=== PATIENT | female | born 1995 ===

== ENCOUNTER 2018-04-05 19:55 | Emergency (ER) | payer SELFPAY ==
[2018-04-05 19:58] VITALS: RESP 18; TEMP 98.6; O2SAT 98; BMI 40.4
--- NOTE | 2018-04-05 20:35 | ED PDOC ---
Arrival/HPI - General Chief Complaint: ENT Problem Time Seen by Provider: 04/05/18 19:58 - History of Present Illness Narrative History of Present Illness (Text): 22 y/o F c PMHx asthma p/w R ear pain x 5 days. Recently returned from [place] and spent a lot of time in the water. Denies fever, neck stiffness, ear discharge. Past Medical History - Travel History If Yes, travel location?: [place] - Infectious Disease Hx of Infectious Diseases: None - Psychiatric Hx Psychophysiologic Disorder: No Hx Anxiety: No Hx Bipolar Disorder: No Hx Depression: No Hx Emotional Abuse: No Hx Hallucinations: No Hx Panic Disorder: No Hx Post Traumatic Stress Disorder: No Hx Psychosis: No Hx Physical Abuse: No Hx Schizophrenia: No Hx Sexual Abuse: No Hx Substance Use: No - Surgical History Other/Comment: performed september 27, 2015. - Anesthesia Hx Anesthesia: No Hx Anesthesia Reactions: No Hx Malignant Hyperthermia: No Family/Social History Family/Social History: No Known Family HX Smoking Status: Never Smoked Hx Alcohol Use: No Hx Substance Use: No Allergies/Home Meds Allergies/Adverse Reactions: Allergies Penicillins Allergy (Verified 11/01/15 11:43) ANAPHYLAXIS Review of Systems - Review of Systems Constitutional: absent: Fevers Respiratory: absent: SOB Gastrointestinal: absent: Vomiting Physical Exam - Physical Exam Narrative Physical Exam (Text): Gen: NAD Head: NC/AT ENT: R ear pain with manipulation, canal swollen but not closed. No mastoid tenderness. Neck: Supple. No rigidity Resp: No respiratory distress Extremities: No edema Neuro: Alert, no focal deficit Skin: No rash Vital Signs Temp Pulse Resp BP Pulse Ox 04/05/18 19:56 98.6 F 118 H 18 105/72 98 Medical Decision Making ED Course and Treatment: Antibiotics prescribed, instructed to f/u with Dr. Sutton. Return to ED for worsening pain, fever, stiff neck, or any other problem. Disposition/Present on Arrival - Present on Arrival Any Indicators Present on Arrival: No History of DVT/PE: No History of Uncontrolled Diabetes: No Urinary Catheter: No History of Decub. Ulcer: No History Surgical Site Infection Following: None - Disposition Have Diagnosis and Disposition been Completed?: Yes Diagnosis: Otitis externa Disposition: HOME/ ROUTINE Disposition Time: 20:33 Patient Plan: Discharge Patient Problems: Current Active Problems Problem Status Onset Otitis externa Acute Condition: STABLE Discharge Instructions (ExitCare): Outer Ear Infection (DC) Prescriptions: Azithromycin [Zithromax] 2 tab PO DAILY #6 tab Ofloxacin Otic 0.3% [Floxin 0.3% Otic Soln] 5 drop AD BID #1 bottle Referrals: Sam Sutton DO [Staff Provider] - Follow up with primary Forms: [email or web address] ([place])
[2018-04-05 20:59] VITALS: BP 110/75; PULSE 90
== END 2018-04-05 20:53 | disposition home or self-care (01) ==
LOC: ED 19:55
DX: H60.90 Unspecified otitis externa, unspecified ear (principal)

== ENCOUNTER 2018-12-07 17:01 | Emergency (ER) | payer OTHER ==
[2018-12-07 17:01] VITALS: BMI 40.4
[2018-12-07] MEDS ORDERED: Sodium Chloride 0.9% 1,000 ML IV STA (17:44)
[2018-12-07 17:54] VITALS: RESP 16
--- NOTE | 2018-12-07 18:05 | ED PDOC ---
Arrival/HPI - General Chief Complaint: Dizziness/Lightheaded Time Seen by Provider: 12/07/18 17:19 Historian: Patient - History of Present Illness Narrative History of Present Illness (Text): 12/07/18 17:54 23 year old F presents to the emergency department complaining of discomfort in R. ear w/o pain ("feels clogged") since yesterday and dizziness since today. Patient mentions that she feels the room is spinning when standing. Patient endorses eating and drinking patterns have not changed. Patient denies syncope and other neurological symptoms such as upper/lower extremity weakness and facial weakness. Patient denies any fevers, chills, headache, chest pain, shortness of breath, dyspnea on exertion, cough, abdominal pain, nausea, vomiting, diarrhea, back pain, neck pain, or any other complaint. Time/Duration: 4-6 hours Symptom Onset: Sudden Symptom Course: Unchanged Activities at Onset: Light Context: Home Past Medical History - Provider Review Nursing Documentation Reviewed: Yes - Infectious Disease Hx of Infectious Diseases: None - Reproductive Menopause: No - Psychiatric Hx Psychophysiologic Disorder: No Hx Anxiety: No Hx Bipolar Disorder: No Hx Depression: No Hx Emotional Abuse: No Hx Hallucinations: No Hx Panic Disorder: No Hx Post Traumatic Stress Disorder: No Hx Psychosis: No Hx Physical Abuse: No Hx Schizophrenia: No Hx Sexual Abuse: No Hx Substance Use: No - Surgical History Hx Gastric Bypass Surgery: Yes Other/Comment: performed september 27, 2015. - Anesthesia Hx Anesthesia: No Hx Anesthesia Reactions: No Hx Malignant Hyperthermia: No Family/Social History - Physician Review Nursing Documentation Reviewed: Yes Family/Social History: No Known Family HX Smoking Status: Never Smoked Hx Alcohol Use: No Hx Substance Use: No Allergies/Home Meds Allergies/Adverse Reactions: Allergies Penicillins Allergy (Verified 11/01/15 11:43) ANAPHYLAXIS Review of Systems - Physician Review All systems were reviewed & negative as marked: Yes - Review of Systems Constitutional: absent: Fevers ENT: absent: Hearing Changes, Tinnitus, TMJ Pain Respiratory: absent: SOB, Cough, Wheezing Cardiovascular: absent: Syncope Gastrointestinal: absent: Abdominal Pain, Diarrhea, Nausea, Vomiting Musculoskeletal: absent: Arthralgias Neurological: Dizziness. absent: Headache Physical Exam Vital Signs Reviewed: Yes Vital Signs Temp Pulse Resp BP Pulse Ox 12/07/18 17:29 98.8 F 88 16 116/75 99 Temperature: Afebrile Blood Pressure: Normal Pulse: Regular Respiratory Rate: Normal Appearance: Positive for: Well-Appearing Mental Status: Positive for: Alert and Oriented X 3 - Systems Exam Head: Present: Atraumatic, Normocephalic Pupils: Present: PERRL Extroacular Muscles: Present: EOMI Conjunctiva: Present: Normal Ears: Present: NORMAL TM (B/L TM are clear). No: TM Bulging, TM Perf Neck: Present: Normal Range of Motion Respiratory/Chest: Present: Clear to Auscultation, Good Air Exchange. No: Respiratory Distress, Accessory Muscle Use Cardiovascular: Present: Regular Rate and Rhythm, Normal S1, S2 Upper Extremity: Present: Normal Inspection (5/5 upper extremities) Lower Extremity: Present: Normal Inspection (5/5 lower extremities) Neurological: Present: GCS=15, Speech Normal, Normal Cerebellar Funct (finger to nose intact bilaterally), Other (no nystagmus) Skin: Present: Warm Psychiatric: Present: Alert, Oriented x 3, Normal Insight, Normal Concentration Medical Decision Making ED Course and Treatment: 12/07/18 18:14 Impression: 23 year old F presents to the emergency department complaining of discomfort in R. ear w/o pain ("feels clogged") since yesterday and dizziness since today. Plan: --Labs --EKG --Antivert --Saline IV -- Reassess and disposition Prior Visits: Notes and results from previous visits were reviewed. Progress Notes: Labs and EKG done. Patient given meclizine PO for vertigo, and 1L NS bolus. 12/07/18 18:28 EKG shows NSR at 65 BPM with normal QRS, normal axis, normal intervals, no acute ST/T wave abnormalities. Interpreted by me. Orthostatics done: lying BP 113/70 HR 70, sitting BP 139/75 HR 84, standing BP 114/70 HR 96 Results discussed with patient. She states that she feels improved with meclizine and fluids. Rx written for meclizine. Also advised maintaining adequate hydration. Patient stable for discharge, able to ambulate without difficulty. - Medication Orders Current Medication Orders: Sodium Chloride (Sodium Chloride 0.9%) 1,000 mls @ 999 mls/hr IV .Q1H1M STA Stop: 12/07/18 18:44 Discontinued Medications Meclizine HCl (Antivert) 25 mg PO STAT STA Stop: 12/07/18 17:45 - PA / DEVELOPMENT PROFESSIONAL / Resident Statement MD/DO has reviewed & agrees with the documentation as recorded. - Scribe Statement The provider has reviewed the documentation as recorded by the Pola Sinhg All medical record entries made by the Pola were at my direction and personally dictated by me. I have reviewed the chart and agree that the record accurately reflects my personal performance of the history, physical exam, medical decision making, and the department course for this patient. I have also personally directed, reviewed, and agree with the discharge instructions and disposition. Disposition/Present on Arrival - Present on Arrival Any Indicators Present on Arrival: No History of DVT/PE: No History of Uncontrolled Diabetes: No Urinary Catheter: No History of Decub. Ulcer: No History Surgical Site Infection Following: None - Disposition Have Diagnosis and Disposition been Completed?: Yes Diagnosis: Vertigo Disposition: HOME/ ROUTINE Disposition Time: 20:50 Patient Problems: Current Active Problems Problem Status Onset Vertigo Acute Condition: STABLE Discharge Instructions (ExitCare): Vertigo (a Type of Dizziness) (DC) Additional Instructions: JONATHAN MONACO, thank you for letting us take care of you today. Your provider was Lima Murphy MD and you were treated for DIZZINESS, BLURRY VISION, EAR PROBLEM. The emergency medical care you received today was directed at your acute symptoms. If you were prescribed any medication, please fill it and take as directed. It may take several days for your symptoms to resolve. Return to the Emergency Department if your symptoms worsen, do not improve, or if you have any other problems. Please contact your doctor or call one of the physicians/clinics you have been referred to that are listed on the Patient Visit Information form that is included in your discharge packet. Bring any paperwork you were given at discharge with you along with any medications you are taking to your follow up visit. Our treatment cannot replace ongoing medical care by a primary care provider outside of the emergency department. Thank you for allowing the [facility] team to be part of your care today. If you had an X-Ray or CT scan: A Radiologist will review the ED reading if any change in treatment is needed we will contact you. If you had a blood, urine, or wound culture: It will take several days for the results, if any change in treatment is needed we will contact you. If you had an STI test: It will take 48 hours for the results. Please call after 1 week if you have not heard back. Prescriptions: Meclizine [Meclizine*] 25 mg PO Q6 #20 tab Referrals: PCP,NO [Primary Care Provider] - Follow up with primary Forms: [employer] (Armenian)
[2018-12-07 19:26] LABS: BASO % 0.1 % (0.0-3.0); EOS % 1.8 % (1.5-5.0); LYMPH # 1.6 (1.2-3.4); LYMPH % 21.5 % (22.0-35.0); MEAN CELL VOLUME 84.7 fl (80.0-105.0); MEAN CORPUSCULAR HEMOGLOBIN 28.3 pg (25.0-35.0); MEAN CORPUSCULAR HGB CONC 33.4 g/dl (31.0-37.0); MEAN PLATELET VOLUME 10.4 fl (7.0-11.0); MONO # 0.6 (0.1-0.6); MONO % 8.4 % (1.0-6.0); RBC 4.24 10^6/uL (3.5-6.1); RED CELL DISTRIBUTION WIDTH 16.1 % (11.5-14.5); WHITE BLOOD COUNT 7.6 10^3/uL (4.5-11.0)
[2018-12-07 19:27] LABS: BASO # 0.01 K/mm3 (0.0-2.0); EOS # 0.1 (0.0-0.7)
[2018-12-07 19:31] LABS: BLOOD UREA NITROGEN 6 mg/dL (7-21); CALCIUM 9.1 mg/dL (8.4-10.5); GFR NON-AFRICAN AMERICAN > 60
[2018-12-07 20:23] VITALS: BP 124/66; PULSE 71; TEMP 98.3; O2SAT 100
--- NOTE | 2018-12-08 07:04 | CARD ---
APPROVED REPORT Date of service: 12/07/2018 EKG Measurement Heart [id number] <Conclusion> Normal sinus rhythm Normal ECG
== END 2018-12-07 20:58 | disposition home or self-care (01) ==
LOC: ED 17:01
DX: R42 Dizziness and giddiness (principal)
CPT/HCPCS: 80048; 81025; 85025; 93005; 96360; 99285; J7030